=== PATIENT | female | born 1985 | race Hispanic/Latino ===

== ENCOUNTER → 2019-04-22 | Outpatient (CLI) | payer BC | END | disposition home or self-care (01) | LOC: OIH 15:11 | PROVIDERS: ATTEND Internal Medicine | DX: M06.4 Inflammatory polyarthropathy (principal) | CPT/HCPCS: 72100; 72202 ==

== ENCOUNTER 2021-11-08 06:58 | Day surgery (SDC) | payer BC ==
[2021-11-07 11:50] LABS: BASOPHILS % (AUTO) 0.4 % (0.0-5.0); EOSINOPHILS % (AUTO) 1.2 % (0.0-8.0); HEMATOCRIT 39.5 % (36-48); LYMPHOCYTES % (AUTO) 20.1 % (21.0-51.0); MEAN CORPUSCULAR HEMOGLOBIN 29.5 pg (27.0-33.0); MEAN CORPUSCULAR HGB CONC 32.2 g/dL (32.0-36.0); MEAN CORPUSCULAR VOLUME 91.9 fL (79-99); MONOCYTES % (AUTO) 3.6 % (3.0-13.0); NEUTROPHILS % (AUTO) 74.4 % (40.0-77.0); PLATELET COUNT (AUTO) 394 K/uL (130-400); RED CELL DISTRIBUTION WIDTH 14.1 % (11.0-15.5); WHITE BLOOD COUNT (AUTO) 10.6 K/uL (4.8-10.8)
[2021-11-07 13:31] VITALS: BP 142/77
[2021-11-08] VITALS (13 sets, daily range): BP systolic 128–176; BP diastolic 78–104
[~2021-11-08] VITALS: Ht 165.1 cm; Wt 100.9 kg
[~2021-11-08 06:58] MED LIST: CEFAZOLIN SODIUM 1 GM VIAL IVP SCH; CELE200 PO; CYCL5TAB PO; FOLI1 PO; LACTATED RINGERS 1000ML 1,000 ML IV SCH; METH2.5T6 PO; ONDA4TAB10 PO; SECU150P2 SQ; TRAM1TAB2 PO; TRIAMCINOLONE TP
[2021-11-08] MEDS ORDERED: LIDOCAINE PF 100MG/5ML (2%) SYRINGE 5ML ONE (09:07)
[2021-11-08] MEDS ORDERED: SUCCINYLCHOLINE CHLORIDE 20 MG/ML 10 ML VIAL ONE (09:07)
[2021-11-08] MEDS ORDERED: MIDAZOLAM HCL 1 MG/ML 2ML VIAL ONE (09:08)
[2021-11-08] MEDS ORDERED: ROCURONIUM 10MG/1ML SYR 10 MG/ML ML ONE ×2 (09:08→09:42)
[2021-11-08] MEDS ORDERED: FENTANYL CITRATE PF 50 MCG/1 ML 2ML VIAL ONE ×2 (09:08→10:41)
[2021-11-08] MEDS ORDERED: PROPOFOL 10 MG/ML 20ML VIAL IV ONE (09:08)
[2021-11-08] MEDS ORDERED: DEXAMETHASONE SOD PHOSPHATE 4 MG/ML 1ML VIAL ONE (09:33)
[2021-11-08] MEDS ORDERED: CEFAZOLIN SODIUM 3 GM VIAL IV ONE (09:33)
[2021-11-08] MEDS ORDERED: ROPIVACAINE 0.5% 5MG/ML 30ML IJ ONE (09:35)
[2021-11-08] MEDS ORDERED: DEXAMETHASONE SOD PHOSPHATE 10MG/ML 1ML VIAL ONE (10:11)
[2021-11-08] MEDS ORDERED: ONDANSETRON 4MG INJ ONE (10:16)
[2021-11-08] MEDS ORDERED: GLYCOPYRROLATE 1 MG/5 ML SYRINGE ONE (10:17)
[2021-11-08] MEDS ORDERED: NEOSTIGMINE 5MG/5ML SYR IV ONE (10:17)
[2021-11-08] MEDS: MEPERIDINE-PF 25 MG/ML SYG ONE ×2 (11:03→11:35)
[2021-11-08] MEDS ORDERED: ENALAPRILAT DIHYDRATE 1.25MG/ML 1ML VIAL IV ONE (11:45)
[2021-11-08] MEDS ORDERED: ENALAPRILAT DIHYDRATE 1.25MG/ML 1ML VIAL IV SCH (12:00)
== END 2021-11-08 12:35 | disposition home or self-care (01) ==
LOC: DAH 06:58
PROVIDERS: ATTEND Obstetrics & Gynecology
DX: N83.8 Other noninflammatory disorders of ovary, fallopian tube and broad ligament (principal); N83.53 Torsion of ovary, ovarian pedicle and fallopian tube; D27.1 Benign neoplasm of left ovary; N80.3 Endometriosis of pelvic peritoneum; N80.1 Endometriosis of ovary; E66.9 Obesity, unspecified; Z68.38 Body mass index [BMI] 38.0-38.9, adult
CPT/HCPCS: 36415; 58720; 84703; 85025; 86850; 86900; 86901; 87635; A4215; A4221; A4222; A4223; A4344; A4663; A6260; C9803; J0330; J0690 ×2; J1100 ×2; J2001; J2175; J2250; J2405; J2704; J2710; J2795; J3010 ×2; J3490 ×2; J7030; J7120